=== PATIENT | male | born 1950 | race Caucasian/White ===

== ENCOUNTER 2017-03-08 22:41 | Emergency (ER) | payer BC ==
[~2017-03-08] VITALS: Ht 170.2 cm; Wt 79.8 kg
[~2017-03-08 22:41] MED LIST: ATIVAN0.5 MG PO; CILOXAN 0.1 APPLICAT RIGHT EYE; CLEOCIN300 MG PO; CLONAZEPAM0.5 MG PO; INDOMETHACIN25 MG PO; INDOMETHACIN50 MG PO; LEVAQUIN750 MG PO; NORCO 5/3251 TABLET PO; PERCOCET 5/31 TABLET PO; PHENERGAN-CODE120 ML PO; VENTOLIN HFA18 GM IH; ZOFRAN ODT4 MG PO; ZOFRAN4 MG PO; ZOLPIDEM TART12.5 MG PO
[2017-03-09] MEDS ORDERED: CIPROFLOXACIN H10 ML BOTH EYES (00:05)
[2017-03-09] MEDS ORDERED: CIPROFLOXACIN H10 ML RIGHT EYE (00:09)
[2017-03-09 00:55] VITALS: BP 155/95
== END 2017-03-09 00:55 | disposition home or self-care (01) ==
LOC: EME 22:41
DX: S05.01XA Injury of conjunctiva and corneal abrasion without foreign body, right eye, initial encounter (principal); M10.9 Gout, unspecified; Z87.820 Personal history of traumatic brain injury
CPT/HCPCS: 99281; 99284

== ENCOUNTER 2017-04-18 09:20 | Emergency (ER) | payer BC ==
[~2017-04-18] VITALS: Ht 170.2 cm; Wt 78.2 kg
[~2017-04-18 09:20] MED LIST changes: +CIPROFLOXACIN H10 ML BOTH EYES; +CIPROFLOXACIN H10 ML RIGHT EYE
[2017-04-18] MEDS ORDERED: ZITHROMAX250 MG PO (10:56)
[2017-04-18] MEDS ORDERED: MOTRIN800 MG PO (10:56)
[2017-04-18 11:09] VITALS: BP 145/82
== END 2017-04-18 11:11 | disposition home or self-care (01) ==
LOC: EME 09:20
DX: J32.9 Chronic sinusitis, unspecified (principal); H04.122 Dry eye syndrome of left lacrimal gland; J02.9 Acute pharyngitis, unspecified
CPT/HCPCS: 87651 90; 99281; 99283

== ENCOUNTER 2017-07-20 23:12 | Emergency (ER) | payer BC ==
[~2017-07-20] VITALS: Ht 170.2 cm; Wt 79.8 kg
[~2017-07-20 23:12] MED LIST changes: +MOTRIN800 MG PO; +ZITHROMAX250 MG PO
[2017-07-21 00:17] LABS: EOSINOPHIL (%) 1.4 % (0-5); EOSINOPHIL COUNT 0.1 K/uL (0-0.3); HEMATOCRIT 37.6 % (38.0-50.0); IMMATURE GRANULOCYTE (%) 0.5 % (0.0-0.7); INSTRUMENT ABS NEUTROPHIL CT 1.6 K/uL; MCH 34.3 PG (29.0-34.0); MCHC 35.1 G/DL (30.0-36.0); MCV 97.7 FL (86-99); MEAN PLAT.VOLUME 9.6 uM^3 (9.0-12.4); MONOCYTE (%) 11.6 % (3-12); MONOCYTE COUNT 0.5 K/uL (0-0.8); NEUTROPHIL (%) 37.9 % (45-76); NEUTROPHIL COUNT 1.6 K/uL (1.8-6.4); PLATELET COUNT 212 K/uL (156-360); RBC DIS.WIDTH-CV 13.3 % (11.8-14.6); RBC DIS.WIDTH-SD 47.2 % (39-53); RED BLOOD COUNT 3.85 M/uL (4.00-5.50); WHITE BLOOD COUNT 4.2 K/uL (4.1-10.2)
[2017-07-21 00:30] LABS: CHLORIDE 102 mEq/L (99-109); POTASSIUM 3.9 mEq/L (3.7-5.4); SODIUM 142 mEq/L (136-147)
[2017-07-21 00:32] LABS: GLUCOSE 119 mg/dL (70-99)
[2017-07-21 00:33] LABS: ANION GAP 17 MEQ/L (2-14)
[2017-07-21 00:35] LABS: SERUM ETHYL ALCOHOL 100 mg/dL
[2017-07-21 00:36] LABS: GFR ESTIMATE (CALCULATED) > 59 mL/min/
[2017-07-21 00:38] LABS: UREA NITROGEN (BUN) 15 mg/dL (9-23)
[2017-07-21 00:39] LABS: SALICYLATE < 5.0 MG/DL (15-30)
[2017-07-21 01:47] VITALS: BP 152/91
== END 2017-07-21 01:47 | disposition home or self-care (01) ==
LOC: EME → EDBD 23:12 → EME 07-21 01:47
PROVIDERS: Emergency Medicine
DX: F10.10 Alcohol abuse, uncomplicated (principal); F43.20 Adjustment disorder, unspecified; Y90.5 Blood alcohol level of 100-119 mg/100 ml; Z04.6 Encounter for general psychiatric examination, requested by authority; Z87.891 Personal history of nicotine dependence
CPT/HCPCS: 80048; 85025; 90837; 99281; 99284; G0480

== ENCOUNTER 2017-07-30 00:07 | Inpatient (IN) | payer BC ==
[~2017-07-30] VITALS: Ht 170.2 cm; Wt 77.0 kg
[2017-07-30 00:57] LABS: HEMATOCRIT 38.2 % (38.0-50.0); MCH 33.8 PG (29.0-34.0); MCHC 35.1 G/DL (30.0-36.0); MCV 96.2 FL (86-99); MEAN PLAT.VOLUME 9.3 uM^3 (9.0-12.4); PLATELET COUNT 198 K/uL (156-360); RBC DIS.WIDTH-CV 12.6 % (11.8-14.6); RBC DIS.WIDTH-SD 44.9 % (39-53); RED BLOOD COUNT 3.97 M/uL (4.00-5.50); WHITE BLOOD COUNT 3.5 K/uL (4.1-10.2)
[2017-07-30 01:02] LABS: ADD MIUA? NO; BILIRUBIN NEGATIVE; BLOOD NEGATIVE; COLOR YELLOW ((YELLOW)); GLUCOSE (STRIP) NEGATIVE; KETONES NEGATIVE; LEUKOCYTES NEGATIVE; NITRITE NEGATIVE; PROTEIN (STRIP) NEGATIVE; SPECIFIC GRAVITY 1.009 (1.000-1.030); UROBILINOGEN 0.2 MG/DL (0.2-1.0)
[2017-07-30 01:07] LABS: CHLORIDE 103 mEq/L (99-109); POTASSIUM 3.7 mEq/L (3.7-5.4); SODIUM 140 mEq/L (136-147)
[2017-07-30 01:09] LABS: AMPHETAMINE NEGATIVE (500 ng/mL); BENZODIAZEPINES PRESUMPTIVE POSITIVE (150 ng/mL); COCAINE NEGATIVE (150 ng/mL); METHAMPHETAMINE NEGATIVE (500 ng/mL); OPIATES (MORPHINE) NEGATIVE (100 ng/mL); PHENCYCLIDINE NEGATIVE (25 ng/mL); THC CANNABINOIDS NEGATIVE (50 ng/mL); TRICYCLIC ANTIDEPRESSANTS NEGATIVE (300 ng/mL)
[2017-07-30 01:09] LABS: GLUCOSE 118 mg/dL (70-99)
[2017-07-30 01:10] LABS: ANION GAP 16 MEQ/L (2-14)
[2017-07-30 01:10] LABS: ADD MEDTOX COMMENT Y; BARBITURATES NEGATIVE (200 ng/mL); INTERNAL CONTROLS VALID? YES; METHADONE NEGATIVE (200 ng/mL); OXYCODONE NEGATIVE (100 ng/mL); PROPOXYPHENE NEGATIVE (300 ng/mL)
[2017-07-30 01:11] LABS: TOTAL BILIRUBIN 0.4 mg/dL (0.0-1.0)
[2017-07-30 01:12] LABS: SERUM ETHYL ALCOHOL 98 mg/dL
[2017-07-30 01:13] LABS: GFR ESTIMATE (CALCULATED) > 59 mL/min/
[2017-07-30 01:14] LABS: ALKALINE PHOSPHATASE 74 IU/L (3-129)
[2017-07-30 01:15] LABS: UREA NITROGEN (BUN) 12 mg/dL (9-23)
[2017-07-30 01:16] LABS: UCUL ADDED? NO
[2017-07-30 01:16] LABS: SALICYLATE < 5.0 MG/DL (15-30)
[2017-07-30 02:52] LABS: BENZODIAZEPINES QUANT VALUE 0 NG/ML; BENZODIAZEPINES, URINE SCREEN Negative (200 ng/mL)
[2017-07-30 04:43] VITALS: BP 150/90
[2017-07-30 06:30] LABS: HDL CHOLESTEROL 59 MG/DL (Desirable>=40); NON-HDL CHOLESTEROL 188 mg/dL (Desirable<160); TOTAL CHOLESTEROL 247 mg/dL (Desirable<200); TRIGLYCERIDES 909 MG/DL (Normal: <150)
[2017-07-30 07:53] VITALS: BP 150/95
[2017-07-30 15:20] VITALS: BP 140/90
[2017-07-30] MEDS ORDERED: PROSCAR5 MG PO (18:45)
[2017-07-30] MEDS ORDERED: PROMETHAZINE12.5 M1 PO (18:46)
[2017-07-30] MEDS ORDERED: ARTIFICIAL TEAR15 M1 BOTH EYES (18:49)
[2017-07-30] MEDS ORDERED: MUCINEX COLD-F177 ML PO (18:51)
[2017-07-31 07:59] VITALS: BP 157/89
[2017-07-31 15:46] VITALS: BP 175/94
[2017-07-31 21:03] VITALS: BP 151/96
[2017-08-01 07:29] VITALS: BP 140/83
[2017-08-01 15:50] VITALS: BP 136/89
[2017-08-02 07:40] LABS: POINT-OF-CARE METER ID UU14188576; POINT-OF-CARE USER ID ENVTLS63
== END 2017-08-02 07:48 | DRG 882 ==
LOC: EME 00:07 → EDOF 03:17 → 1WEST 03:17 → ENRESERV 04:04 → 1WEST 04:35
PROVIDERS: Emergency Medicine; Psychiatry & Neurology Psychiatry
DX: F43.23 Adjustment disorder with mixed anxiety and depressed mood (principal); R45.851 Suicidal ideations; R45.850 Homicidal ideations; F10.20 Alcohol dependence, uncomplicated; Y90.4 Blood alcohol level of 80-99 mg/100 ml; R56.9 Unspecified convulsions; F41.0 Panic disorder [episodic paroxysmal anxiety]; M10.9 Gout, unspecified; R11.0 Nausea; R09.82 Postnasal drip; Z87.891 Personal history of nicotine dependence
CPT/HCPCS: 80053; 80061; 81003; 82140; 82948; 84999; 85027; 90837; 93005; 94640; 94640 76; 97150 GO; 97165 GO; 99202; 99281; 99285; G0480; Q0169; Q0177

== ENCOUNTER 2017-08-02 07:47 | Inpatient (IN) | payer BC ==
[~2017-08-02] VITALS: Ht 170.2 cm; Wt 77.8 kg
[~2017-08-02 07:47] MED LIST changes: +ARTIFICIAL TEAR15 M1 BOTH EYES; +MUCINEX COLD-F177 ML PO; +PROMETHAZINE12.5 M1 PO; +PROSCAR5 MG PO
[2017-08-02 07:50] VITALS: BP 93/54
[2017-08-02 09:10] VITALS: BP 151/93
[2017-08-02 11:20] LABS: TROP-I INTERPRETATION NEGATIVE; TROPONIN-I 0.02 ng/mL (0.0-0.30)
[2017-08-02 12:15] VITALS: BP 155/98
[2017-08-02 12:55] LABS: ADD MIUA? YES; BILIRUBIN NEGATIVE; BLOOD LARGE; COLOR YELLOW ((YELLOW)); GLUCOSE (STRIP) NEGATIVE; KETONES 20; LEUKOCYTES NEGATIVE; NITRITE NEGATIVE; PROTEIN (STRIP) 100; SPECIFIC GRAVITY 1.013 (1.000-1.030); UROBILINOGEN 0.2 MG/DL (0.2-1.0)
[2017-08-02 13:38] LABS: BACTERIA NONE SEEN /HPF; EPITHELIAL CELLS NONE SEEN /HPF; GRANULAR CASTS 0-5 /LPF; MUCUS TRACE /LPF; RED BLOOD CELLS NONE SEEN /HPF (0-5); UCUL ADDED? NO; WHITE BLOOD CELLS 0-5 /HPF (0-5)
[2017-08-02 14:26] LABS: HEMATOCRIT 47.6 % (38.0-50.0); MCH 33.8 PG (29.0-34.0); MCHC 31.3 G/DL (30.0-36.0); MEAN PLAT.VOLUME 10.2 uM^3 (9.0-12.4); RBC DIS.WIDTH-CV 13.2 % (11.8-14.6); RBC DIS.WIDTH-SD 52.6 % (39-53); RED BLOOD COUNT 4.41 M/uL (4.00-5.50); WHITE BLOOD COUNT 17.9 K/uL (4.1-10.2)
[2017-08-02 14:27] LABS: MCV 107.9 FL (86-99); PLATELET COUNT 293 K/uL (156-360)
[2017-08-02 16:00] VITALS: BP 155/93
[2017-08-02 19:08] VITALS: BP 138/88
[2017-08-02 20:42] LABS: ANION GAP 13 MEQ/L (2-14); CHLORIDE 107 MEQ/L (99-109); GFR ESTIMATE (CALCULATED) 59 mL/min/; GLUCOSE 148 mg/dL (70-99); POTASSIUM 3.7 MEQ/L (3.7-5.4); SAMPLE HEMOLYSIS CHECK 0; SAMPLE ICTERIC CHECK 0; SAMPLE LIPEMIA CHECK 0; SODIUM 141 MEQ/L (136-147); UREA NITROGEN (BUN) 13 mg/dL (9-23)
[2017-08-03] VITALS (7 sets, daily range): BP systolic 130–156; BP diastolic 72–92
[2017-08-03 01:06] LABS: POINT-OF-CARE METER ID UU13113698
[2017-08-03 06:10] LABS: ALKALINE PHOSPHATASE 48 IU/L (3-129); ANION GAP 9 MEQ/L (2-14); CHLORIDE 108 MEQ/L (99-109); GFR ESTIMATE (CALCULATED) > 59 mL/min/; GLUCOSE 137 mg/dL (70-99); POTASSIUM 3.7 MEQ/L (3.7-5.4); SAMPLE HEMOLYSIS CHECK 0; SAMPLE ICTERIC CHECK 0; SAMPLE LIPEMIA CHECK 0; SODIUM 145 MEQ/L (136-147); TOTAL BILIRUBIN 0.5 MG/DL (0.0-1.0); UREA NITROGEN (BUN) 13 mg/dL (9-23)
[2017-08-03 06:19] LABS: POINT-OF-CARE METER ID UU13113698
[2017-08-03 06:44] LABS: HEMATOCRIT 38.6 % (38.0-50.0); MCH 32.3 PG (29.0-34.0); MCHC 32.6 G/DL (30.0-36.0); RBC DIS.WIDTH-SD 46.1 % (39-53); WHITE BLOOD COUNT 8.9 K/uL (4.1-10.2)
[2017-08-03 06:57] LABS: MEAN PLAT.VOLUME 9.9 uM^3 (9.0-12.4); PLATELET CLUMPS PRESENT - PLATELET COUNT APPEARS ADQ.
[2017-08-03 07:06] LABS: PLATELET COUNT ND K/uL (156-360)
[2017-08-03 08:14] LABS: INTERNAL CONTROL VALID? YES
[2017-08-03 11:45] LABS: POINT-OF-CARE METER ID UU13113781
[2017-08-03 17:59] LABS: POINT-OF-CARE METER ID UU13113781
[2017-08-04 03:51] VITALS: BP 125/71
[2017-08-04 05:10] LABS: EOSINOPHIL (%) 0.1 % (0-5); HEMATOCRIT 34.7 % (38.0-50.0); IMMATURE GRANULOCYTE (%) 0.4 % (0.0-0.7); INSTRUMENT ABS NEUTROPHIL CT 5.7 K/uL; LYMPHOCYTE COUNT 1.2 K/uL (1.0-2.8); MCH 33.6 PG (29.0-34.0); MCV 98.9 FL (86-99); MEAN PLAT.VOLUME 9.8 uM^3 (9.0-12.4); MONOCYTE (%) 8.6 % (3-12); MONOCYTE COUNT 0.7 K/uL (0-0.8); NEUTROPHIL COUNT 5.7 K/uL (1.8-6.4); RBC DIS.WIDTH-CV 12.6 % (11.8-14.6); RBC DIS.WIDTH-SD 45.6 % (39-53); RED BLOOD COUNT 3.51 M/uL (4.00-5.50); WHITE BLOOD COUNT 7.6 K/uL (4.1-10.2)
[2017-08-04 05:46] LABS: ANION GAP 11 MEQ/L (2-14); CHLORIDE 104 MEQ/L (99-109); GFR ESTIMATE (CALCULATED) > 59 mL/min/; GLUCOSE 120 mg/dL (70-99); POTASSIUM 3.6 MEQ/L (3.7-5.4); SAMPLE HEMOLYSIS CHECK 0; SAMPLE ICTERIC CHECK 0; SAMPLE LIPEMIA CHECK 0; SODIUM 141 MEQ/L (136-147); UREA NITROGEN (BUN) 8 mg/dL (9-23)
[2017-08-04 07:09] LABS: ANISOCYTOSIS 1+; MACROCYTES 1+; PLAT.SUFFICIENCY ADEQUATE; PLATELET CLUMPS PRESENT - PLATELET COUNT APPEARS ADQ.; PLATELET COUNT UNABLE TO REPORT K/uL (156-360)
[2017-08-04 07:26] VITALS: BP 146/97
[2017-08-04 12:00] VITALS: BP 122/83
[2017-08-04 12:39] LABS: POINT-OF-CARE METER ID UU13113698
[2017-08-04 15:24] VITALS: BP 134/85
[2017-08-04] MEDS ORDERED: FLONASE16 G1 BOTH NARES (16:11)
[2017-08-04] MEDS ORDERED: AMBIEN10 MG PO (16:12)
[2017-08-04] MEDS ORDERED: CLARITIN-D 21 TABLET PO (16:12)
[2017-08-04] MEDS ORDERED: MEN'S MULTI-VI1 EACH PO (16:13)
[2017-08-04] MEDS ORDERED: BIOTIN 5000MCG PO (16:15)
[2017-08-04] MEDS ORDERED: CO Q-10100 MG PO (16:16)
[2017-08-04 20:01] VITALS: BP 150/90
[2017-08-05 00:04] VITALS: BP 145/84
[2017-08-05 04:17] VITALS: BP 158/82
[2017-08-05 06:50] LABS: EOSINOPHIL (%) 0.4 % (0-5); HEMATOCRIT 36.5 % (38.0-50.0); IMMATURE GRANULOCYTE (%) 0.7 % (0.0-0.7); IMMATURE GRANULOCYTE COUNT 0.1 K/uL; INSTRUMENT ABS NEUTROPHIL CT 5.4 K/uL; LYMPHOCYTE COUNT 0.8 K/uL (1.0-2.8); MCH 32.6 PG (29.0-34.0); MCHC 33.4 G/DL (30.0-36.0); MCV 97.6 FL (86-99); MEAN PLAT.VOLUME 9.8 uM^3 (9.0-12.4); MONOCYTE (%) 9.7 % (3-12); MONOCYTE COUNT 0.7 K/uL (0-0.8); NEUTROPHIL (%) 77.9 % (45-76); NEUTROPHIL COUNT 5.4 K/uL (1.8-6.4); RBC DIS.WIDTH-CV 12.1 % (11.8-14.6); RED BLOOD COUNT 3.74 M/uL (4.00-5.50); WHITE BLOOD COUNT 6.9 K/uL (4.1-10.2)
[2017-08-05 06:56] LABS: PLATELET COUNT 178 K/uL (156-360)
[2017-08-05 07:14] LABS: ANION GAP 10 MEQ/L (2-14); CHLORIDE 102 MEQ/L (99-109); GFR ESTIMATE (CALCULATED) > 59 mL/min/; GLUCOSE 103 mg/dL (70-99); POTASSIUM 3.9 MEQ/L (3.7-5.4); SAMPLE HEMOLYSIS CHECK 0; SAMPLE ICTERIC CHECK 0; SAMPLE LIPEMIA CHECK 0; SODIUM 139 MEQ/L (136-147); UREA NITROGEN (BUN) 11 mg/dL (9-23)
[2017-08-05 08:11] VITALS: BP 139/94
[2017-08-05 15:41] VITALS: BP 146/98
[2017-08-05 23:45] VITALS: BP 140/87
[2017-08-06 08:08] VITALS: BP 126/77
[2017-08-06 09:18] LABS: EOSINOPHIL (%) 0.3 % (0-5); HEMATOCRIT 37.2 % (38.0-50.0); IMMATURE GRANULOCYTE (%) 0.9 % (0.0-0.7); IMMATURE GRANULOCYTE COUNT 0.1 K/uL; LYMPHOCYTE COUNT 1.1 K/uL (1.0-2.8); MCH 31.9 PG (29.0-34.0); MCHC 32.5 G/DL (30.0-36.0); MCV 98.2 FL (86-99); MEAN PLAT.VOLUME 9.9 uM^3 (9.0-12.4); MONOCYTE (%) 10.9 % (3-12); MONOCYTE COUNT 0.8 K/uL (0-0.8); NEUTROPHIL (%) 71.8 % (45-76); PLATELET COUNT 208 K/uL (156-360); RBC DIS.WIDTH-CV 12.5 % (11.8-14.6); RBC DIS.WIDTH-SD 45.1 % (39-53); RED BLOOD COUNT 3.79 M/uL (4.00-5.50); WHITE BLOOD COUNT 6.9 K/uL (4.1-10.2)
[2017-08-06 09:36] LABS: ANION GAP 12 MEQ/L (2-14); CHLORIDE 104 MEQ/L (99-109); GFR ESTIMATE (CALCULATED) > 59 mL/min/; GLUCOSE 142 mg/dL (70-99); POTASSIUM 3.7 MEQ/L (3.7-5.4); SAMPLE HEMOLYSIS CHECK 0; SAMPLE ICTERIC CHECK 0; SAMPLE LIPEMIA CHECK 0; SODIUM 142 MEQ/L (136-147); UREA NITROGEN (BUN) 13 mg/dL (9-23); URIC ACID 8.3 mg/dL (3.1-9.2)
[2017-08-06] MEDS ORDERED: LOVENOX40 MG/0.4 SC (12:53)
[2017-08-06] MEDS ORDERED: DUONEB 2.5-0.5 M3 ML AEROSOL (12:53)
[2017-08-06] MEDS ORDERED: TAMSULOSIN HCL0.4 MG PO (12:53)
[2017-08-06] MEDS ORDERED: RISPERDAL2 MG PO (12:54)
[2017-08-06] MEDS ORDERED: LEVETIRACETAM500 MG PO (12:54)
[2017-08-06] MEDS ORDERED: ACETAMINOPHEN650 M4 PR (12:54)
[2017-08-06] MEDS ORDERED: CHLORDIAZEPOXID25 MG PO (12:55)
[2017-08-06] MEDS ORDERED: LORAZEPAM1 MG PO (12:55)
[2017-08-06] MEDS ORDERED: ALLOPURINOL100 MG PO (12:56)
[2017-08-06] MEDS ORDERED: AUGMENTIN875 MG PO (12:56)
[2017-08-06] MEDS ORDERED: Colchicine,Colcrys PO (12:57)
[2017-08-06 17:07] VITALS: BP 115/80
== END 2017-08-06 18:21 | DRG 896 ==
LOC: 4EAST 07:47 → ENRESERV 07:53 → 4EAST 07:54 → ENRESERV 08-04 12:54 → 5SOUTH 08-04 14:48
PROVIDERS: Family Medicine; Internal Medicine; Specialist
DX: F10.231 Alcohol dependence with withdrawal delirium (principal); J44.0 Chronic obstructive pulmonary disease with (acute) lower respiratory infection; Z87.820 Personal history of traumatic brain injury; G40.409 Other generalized epilepsy and epileptic syndromes, not intractable, without status epilepticus; J13 Pneumonia due to Streptococcus pneumoniae; R33.8 Other retention of urine; M10.9 Gout, unspecified; F43.23 Adjustment disorder with mixed anxiety and depressed mood; G47.00 Insomnia, unspecified
CPT/HCPCS: 70450; 71010; 73610; 80048; 80053; 80185; 81003; 82948; 84484; 84550; 85025; 85027; 87040; 87086; 87449; 92610 GN; 94640; 94799; 95819; 99202; J0456; J0696; J1165; J1650; J2060; J2405; J3411; J7030; J7050

== ENCOUNTER 2017-08-06 17:05 | Inpatient (IN) | payer BC ==
[~2017-08-06] VITALS: Ht 170.2 cm; Wt 75.3 kg
[~2017-08-06 17:05] MED LIST changes: +ACETAMINOPHEN650 M4 PR; +ALLOPURINOL100 MG PO; +AMBIEN10 MG PO; +AUGMENTIN875 MG PO; +BIOTIN 5000MCG PO; +CHLORDIAZEPOXID25 MG PO; +CLARITIN-D 21 TABLET PO; +CO Q-10100 MG PO; +Colchicine,Colcrys PO; +DUONEB 2.5-0.5 M3 ML AEROSOL; +FLONASE16 G1 BOTH NARES; +LEVETIRACETAM500 MG PO; +LORAZEPAM1 MG PO; +LOVENOX40 MG/0.4 SC; +MEN'S MULTI-VI1 EACH PO; +RISPERDAL2 MG PO; +TAMSULOSIN HCL0.4 MG PO
[2017-08-06 18:38] VITALS: BP 136/93
[2017-08-07 08:30] VITALS: BP 123/71
[2017-08-07 15:56] VITALS: BP 122/75
[2017-08-08 07:55] VITALS: BP 117/7; BP 117/73
[2017-08-08 15:34] VITALS: BP 129/75
[2017-08-09 08:50] VITALS: BP 119/69
[2017-08-09] MEDS ORDERED: Thiamine,Vitamin B1 PO (10:54)
[2017-08-09] MEDS ORDERED: TAMSULOSIN HCL0.4 MG PO (10:54)
[2017-08-09] MEDS ORDERED: INDOCIN25 MG PO (10:54)
[2017-08-09] MEDS ORDERED: FOLIC ACID1 MG PO (10:54)
[2017-08-09] MEDS ORDERED: LEVETIRACETAM500 MG PO (10:54)
[2017-08-09] MEDS ORDERED: AMOX TR-K CLV1 EAC4 PO (10:54)
== END 2017-08-09 13:12 | disposition home or self-care (01) | DRG 882 ==
LOC: 1WEST 17:05 → ENRESERV 17:06 → 1WEST 18:26 → 2SOUTH 08-07 10:39 → 1WEST 08-07 10:40
DX: F43.23 Adjustment disorder with mixed anxiety and depressed mood (principal); M10.9 Gout, unspecified; N40.0 Benign prostatic hyperplasia without lower urinary tract symptoms; R41.89 Other symptoms and signs involving cognitive functions and awareness; Z87.820 Personal history of traumatic brain injury; F10.20 Alcohol dependence, uncomplicated; R45.851 Suicidal ideations
CPT/HCPCS: 73610; 82140; 97150 GO; 97165 GO; 99202; J1650

== ENCOUNTER 2017-10-03 12:18 | Emergency (ER) | payer BC ==
[~2017-10-03] VITALS: Ht 170.2 cm; Wt 76.6 kg
[~2017-10-03 12:18] MED LIST changes: +AMOX TR-K CLV1 EAC4 PO; +FOLIC ACID1 MG PO; +INDOCIN25 MG PO; +Thiamine,Vitamin B1 PO
[2017-10-03] MEDS ORDERED: ULTRAM50 MG PO (13:17)
[2017-10-03] MEDS ORDERED: CILOXAN 0.100 DROP/5 LEFT EYE (13:18)
[2017-10-03 13:20] VITALS: BP 147/93
== END 2017-10-03 13:48 | disposition home or self-care (01) ==
LOC: EME 12:18
DX: S05.02XA Injury of conjunctiva and corneal abrasion without foreign body, left eye, initial encounter (principal); X58.XXXA Exposure to other specified factors, initial encounter; F32.9 Major depressive disorder, single episode, unspecified; F41.9 Anxiety disorder, unspecified; M10.9 Gout, unspecified; Z88.2 Allergy status to sulfonamides; Z87.891 Personal history of nicotine dependence
CPT/HCPCS: 99281; 99283

== ENCOUNTER 2018-05-28 11:34 | Emergency (ER) | payer BC ==
[~2018-05-28] VITALS: Ht 170.2 cm; Wt 77.1 kg
[~2018-05-28 11:34] MED LIST changes: +CILOXAN 0.100 DROP/5 LEFT EYE; +ULTRAM50 MG PO
[2018-05-28] MEDS ORDERED: KEFLEX500 MG PO (13:26)
[2018-05-28 13:37] VITALS: BP 131/88
== END 2018-05-28 13:38 | disposition home or self-care (01) ==
LOC: EME 11:34
DX: L03.031 Cellulitis of right toe (principal); Z88.2 Allergy status to sulfonamides; Z87.891 Personal history of nicotine dependence
CPT/HCPCS: 73630; 99281; 99283